=== PATIENT | male | born 1975 | race Caucasian/White ===

== ENCOUNTER → 2016-11-03 | Outpatient (REF) ==
--- NOTE | 2016-11-03 20:54 | REP ---
Clinical: Pain and disability. Technique: AP, lateral, coned-down views. Findings: Subtle reversal of normal lordosis and levoconvex scoliosis is appreciated with associated degenerative changes including marginal osteophytes along the right side of the lumbar vertebral bodies and asymmetric mild space narrowing. No acute fracture / compression injury or subluxation. Impression: Degenerative changes as described above. Signed by Saman Vasquez MD 11/03/2016 08:41 P
== END | disposition home or self-care (01) ==
LOC: M SMT 12:44
PROVIDERS: ATTEND Internal Medicine
DX: Z02.71 Encounter for disability determination (principal)